=== PATIENT | female | born 2005 | race Caucasian/White ===

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

== ENCOUNTER 2025-03-13 05:49 | Inpatient (IN) | payer MEDICAID ==
[2025-03-13] MEDS ORDERED: Sodium Chloride 0.9% 10 ML Syringe FLUSH PRN (06:24)
[2025-03-13] MEDS ORDERED: Nalbuphine 10 MG/1 ML Vial IVPUSH PRN (06:24)
[2025-03-13] MEDS ORDERED: Water For Irrigation,Sterile 1,000 ML Container IRR PRN (06:24)
[2025-03-13] MEDS ORDERED: Sodium Chloride 0.9% 2.5 ML Syringe FLUSH PRN (06:24)
[2025-03-13] MEDS ORDERED: Butorphanol 1 MG/ML SDV IVPUSH PRN (06:24)
[2025-03-13] MEDS ORDERED: Carboprost Tromethamine 250 MCG/1 mL Vial IM PRN (06:24)
[2025-03-13] MEDS ORDERED: Ondansetron 4 MG/2 ML SDV IVPUSH PRN (06:24)
[2025-03-13] MEDS ORDERED: Oxytocin/0.9 % Sodium Chloride 30 UNIT/500 ML BAG IV SCH (06:30)
[2025-03-13 07:08] LABS: MEAN PLATELET VOLUME 9.5 fL (9.4-12.3); NRBC ABSOLUTE 0.00 K/uL (0.00-0.02); NRBC PERCENT 0.0 /100WBC (0.0-0.2); PLATELET COUNT,PLT 195 K/uL (150-400); RED BLOOD CELL COUNT 4.41 M/uL (4.10-5.30); WHITE BLOOD CELL COUNT,WBC 16.12 K/uL (3.9-11.3)
[2025-03-13] MEDS: Lactated Ringers 1,000 ML IV SCH (08:00)
[2025-03-13] MEDS: Ropivacaine HCl/PF 400 MG in Premix Bag 1 BAG EPIDUR SCH (08:23)
[2025-03-13] MEDS ORDERED: ePHEDrine 50 MG/ML SDV IVPUSH PRN (08:32)
[2025-03-13] MEDS ORDERED: dexmedeTOMIDine HCl 200 MCG/2 ML SDV EPIDUR SCH (08:45)
[2025-03-13] MEDS: ceFAZolin 2 GM in Water For Injection, Sterile 20 ML IVPUSH SCH (16:18)
[2025-03-13] MEDS ORDERED: Terbutaline 1 MG/ML SDV SUBCUT PRN (16:38)
[2025-03-13] MEDS: Oxytocin/0.9 % Sodium Chloride 30 UNIT/500 ML BAG IV SCH (16:48)
[2025-03-13 18:44] LABS: PH,UMBILICAL ARTERIAL 7.31 (7.18-7.38); PH,UMBILICAL VENOUS 7.35 (7.25-7.45)
[2025-03-13] MEDS: Witch Hazel Medicated Pads 40/Jar TOP PRN (19:59)
[2025-03-13] MEDS: Benzocaine/Menthol 20%-0.5% Spray 78 GM Cannister TOP PRN (20:00)
[2025-03-14 06:08] LABS: MEAN PLATELET VOLUME 9.2 fL (9.4-12.3); NRBC ABSOLUTE 0.00 K/uL (0.00-0.02); NRBC PERCENT 0.0 /100WBC (0.0-0.2); PLATELET COUNT,PLT 184 K/uL (150-400); RED BLOOD CELL COUNT 4.16 M/uL (4.10-5.30); WHITE BLOOD CELL COUNT,WBC 19.16 K/uL (3.9-11.3)
[2025-03-14] MEDS: Lanolin 100% Cream 7 GM Tube TOP PRN (09:35)
[2025-03-15] MEDS: dexmedeTOMIDine HCl 200 MCG/2 ML SDV ONE (07:28)
[2025-03-15] MEDS: Ropivacaine HCl/PF 200 ML ONE (07:28)
[2025-03-15 20:37] VITALS: BP 111/74; PULSE 75
== END 2025-03-15 21:36 | disposition home or self-care (01) | DRG 807 ==
LOC: MW.OBCHECK 05:49 → MW.OB 05:51 → OBSVTOIN 18:00 → MW.OBCHECK 18:03 → MW.OB 22:42
PROVIDERS: ADMIT Obstetrics & Gynecology; ATTEND Obstetrics & Gynecology
PROC: 10E0XZZ Delivery of Products of Conception, External Approach (ICD-10-PCS; principal; 2025-03-13)
PROC: 10907ZC Drainage of Amniotic Fluid, Therapeutic from Products of Conception, Via Natural or Artificial Opening (ICD-10-PCS; 2025-03-13)
PROC: 3E0R3BZ Introduction of Anesthetic Agent into Spinal Canal, Percutaneous Approach (ICD-10-PCS; 2025-03-13)
PROC: 10H07YZ Insertion of Other Device into Products of Conception, Via Natural or Artificial Opening (ICD-10-PCS; 2025-03-13)
DX: O48.0 Post-term pregnancy (principal); Z37.0 Single live birth; O99.02 Anemia complicating childbirth; O76 Abnormality in fetal heart rate and rhythm complicating labor and delivery; Z98.890 Other specified postprocedural states; Z3A.40 40 weeks gestation of pregnancy; Z79.899 Other long term (current) drug therapy
CPT/HCPCS: 36415; 51702; 59025; 59409; 82803; 85027; 86592; 86850; 86900; 86901; A4216; A9270-GY; J0690; J2371; J2590; J2795; J7030; J7120